=== PATIENT | male | born 1940 | race Caucasian/White ===

== ENCOUNTER → 2019-11-23 | Outpatient (CLI) | payer MEDICARE ==
--- NOTE | 2019-11-23 15:01 | KCIC ---
SHOULDER 2+V RIGHT DATE: 11/23/2019 12:00 AM INDICATION: Right shoulder pain after falling COMPARISON: None. FINDINGS: Bones: There is no evidence of acute fracture or dislocation. Joints: Mild degenerative changes of the acromioclavicular joint. Glenohumeral joint is congruent. The acromiohumeral distance is not narrowed. Miscellaneous: Calcified pulmonary granulomatous IMPRESSION: No evidence of acute fracture. Electronically signed by: Abran Devlin MD (11/23/2019 2:57 PM) [id number]
== END | disposition home or self-care (01) ==
LOC: KCIC 11:06
PROVIDERS: ATTEND Family Medicine
DX: M19.011 Primary osteoarthritis, right shoulder (principal)
CPT/HCPCS: 73030

== ENCOUNTER → 2019-12-02 | Outpatient (CLI) | payer MEDICARE ==
--- NOTE | 2019-12-02 13:21 | KCIC ---
EXAM: Abdomen sonogram. HISTORY: Thrombocytopenia. TECHNIQUE: Sonographic imaging of the abdomen was performed. COMPARISON: None. FINDINGS: The exam is limited due to bowel gas. The visualized portions the liver are unremarkable. The liver appears to be normal in size. The liver parenchyma is slightly echogenic. However, this is not seen on all images and is likely due to technique rather than steatosis. The gallbladder is unremarkable. The common bile duct and pancreas are obscured. The aorta is normal in caliber. The spleen appears to be normal in size. The kidneys are normal in size. There is a 6.1 cm hypoechoic lesion within the upper pole of the right kidney. This appears to be cystic. IMPRESSION: 1. Limited exam due to bowel gas. The liver is partially obscured and the pancreas and common bile duct are obscured. 2. Normal liver and spleen size 3. 6.1 cm suspected right renal cyst, difficult to characterize given aforementioned study limitations. 4. Unremarkable gallbladder. Electronically signed by: Deandra Patino MD (12/02/2019 1:18 PM) [id number]
== END | disposition home or self-care (01) ==
LOC: KCIC US 10:05
PROVIDERS: ATTEND Family Medicine
DX: N28.89 Other specified disorders of kidney and ureter (principal); D47.3 Essential (hemorrhagic) thrombocythemia
CPT/HCPCS: 76700